=== PATIENT | female | born 1985 | race Caucasian/White ===

== ENCOUNTER 2018-04-15 19:51 | Emergency (ER) | payer OTHER ==
[~2018-04-15] VITALS: Ht 162.6 cm; Wt 152.0 kg
[~2018-04-15 19:51] MED LIST: AMOXICILLIN500 MG OR; AMOXICILLIN500 MG PO; CIPRO500 MG OR; LORTAB 5-325 MG1 TAB PO; LORTAB 7.5-3251 TAB PO; LORTAB5 OR; NO HOME MEDS; PRENATABS FA PO
[2018-04-15 23:25] VITALS: BP 155/92
== END 2018-04-15 23:25 | disposition home or self-care (01) ==
LOC: ED 19:51
DX: S93.491A Sprain of other ligament of right ankle, initial encounter (principal); X50.0XXA Overexertion from strenuous movement or load, initial encounter; Y92.89 Other specified places as the place of occurrence of the external cause; Y99.0 Civilian activity done for income or pay

== ENCOUNTER 2018-05-02 10:45 | Emergency (ER) | payer OTHER ==
[~2018-05-02] VITALS: Ht 162.6 cm; Wt 150.4 kg
[2018-05-02] MEDS ORDERED: AMOXICILLIN875 MG PO (11:39)
[2018-05-02 11:50] VITALS: BP 155/98
== END 2018-05-02 11:50 | disposition home or self-care (01) ==
LOC: ED 10:45
DX: J02.9 Acute pharyngitis, unspecified (principal); H61.21 Impacted cerumen, right ear; F17.210 Nicotine dependence, cigarettes, uncomplicated; R05 Cough; R09.89 Other specified symptoms and signs involving the circulatory and respiratory systems; R50.9 Fever, unspecified

== ENCOUNTER 2018-05-21 17:24 | Emergency (ER) | payer OTHER ==
[~2018-05-21] VITALS: Ht 162.6 cm; Wt 151.4 kg
[~2018-05-21 17:24] MED LIST changes: +AMOXICILLIN875 MG PO
[2018-05-21 20:19] LABS: HEMATOCRIT 42.9 % (37.0-47.0); IMMATURE GRANULOCYTES 0.3 % (0.0-5.0); MEAN CELL VOLUME 88.1 fL CALC (80.0-100.0); MEAN CORPUSCULAR HGB 28.7 pG CALC (26.0-32.0); MEAN CORPUSCULAR HGB CONC 32.6 g/L CALC (32.0-36.0); NEUT# 8.37 thou/uL (2.00-7.15); RED BLOOD COUNT 4.87 mill/uL (4.20-5.60); RED CELL DISTRI WIDTH 13.9 % (11.5-15.5)
[2018-05-21 20:21] LABS: URINE BILIRUBIN - DIPSTICK NEGATIVE (NEGATIVE); URINE BLOOD DIPSTICK TRACE-INTACT (NEGATIVE); URINE COLOR YELLOW; URINE GLUCOSE - DIPSTICK NEGATIVE (NEGATIVE); URINE KETONE NEGATIVE (NEGATIVE); URINE LEUK ESTERASE NEGATIVE (NEGATIVE); URINE NITRITE - DIPSTICK NEGATIVE (Negative); URINE PH 5.5 (4.5-8.0); URINE PROTEIN - DIPSTICK NEGATIVE (NEG-TRACE); URINE SPECIFIC GRAVITY >=1.030; URINE UROBILINOGEN - DIPSTICK 0.2 E.U./dL (0.2)
[2018-05-21 21:08] LABS: ALBUMIN 4.3 g/dL (3.2-5.0); ALKALINE PHOSPHATASE 114 u/l (38-126); ANION GAP 18 (6-22 (CALC)); BILIRUBIN, TOTAL 0.4 mg/dL (0.0-1.4); BUN 13 mg/dL (7-17); BUN/CREATININE RATIO 21 (12-20 (CALC)); CARBON DIOXIDE 25 mmol/l (22-30); CHLORIDE 100 mmol/l (95-108); CREATININE 0.6 mg/dL (0.5-1.0); GFR > 60 ML/MIN (>=60 (CALC)); GFR FOR AFR.AMER. > 60 ML/MIN (>=60 (CALC)); POTASSIUM 4.1 mmol/l (3.5-5.1); SGOT/AST 28 u/l (14-36); SODIUM 139 mmol/l (137-146); TOTAL PROTEIN 7.5 g/dL (6.3-8.2)
[2018-05-21] MEDS ORDERED: ANTIVERT PO (21:19)
[2018-05-21] MEDS ORDERED: LOSARTAN POT100 MG PO (21:19)
[2018-05-21 21:26] VITALS: BP 149/101
[2018-05-22] MEDS ORDERED: WELLBUTRIN SR100 MG PO (13:02)
== END 2018-05-21 21:34 | disposition home or self-care (01) ==
LOC: ED 17:24
PROVIDERS: Family Medicine
DX: H81.10 Benign paroxysmal vertigo, unspecified ear (principal); I10 Essential (primary) hypertension; F41.9 Anxiety disorder, unspecified; F32.9 Major depressive disorder, single episode, unspecified; R42 Dizziness and giddiness

== ENCOUNTER 2018-05-22 12:15 | Emergency (ER) | payer OTHER ==
[~2018-05-22] VITALS: Ht 162.6 cm; Wt 151.0 kg
[~2018-05-22 12:15] MED LIST changes: +ANTIVERT PO; +LOSARTAN POT100 MG PO
[2018-05-22] MEDS ORDERED: WELLBUTRIN SR100 MG PO (13:02)
[2018-05-22 13:27] LABS: HEMATOCRIT 45.5 % (37.0-47.0); HEMOGLOBIN 14.7 g/dl (12.0-16.0); IMMATURE GRANULOCYTES 0.2 % (0.0-5.0); MEAN CELL VOLUME 88.5 fL CALC (80.0-100.0); MEAN CORPUSCULAR HGB 28.6 pG CALC (26.0-32.0); MEAN CORPUSCULAR HGB CONC 32.3 g/L CALC (32.0-36.0); NEUT# 8.85 thou/uL (2.00-7.15); RED BLOOD COUNT 5.14 mill/uL (4.20-5.60); RED CELL DISTRI WIDTH 13.8 % (11.5-15.5)
[2018-05-22 13:39] LABS: ANION GAP 20 (6-22 (CALC)); BUN 14 mg/dL (7-17); BUN/CREATININE RATIO 21 (12-20 (CALC)); CARBON DIOXIDE 22 mmol/l (22-30); CHLORIDE 100 mmol/l (95-108); CREATININE 0.6 mg/dL (0.5-1.0); GFR > 60 ML/MIN (>=60 (CALC)); GFR FOR AFR.AMER. > 60 ML/MIN (>=60 (CALC)); POTASSIUM 3.7 mmol/l (3.5-5.1); SODIUM 139 mmol/l (137-146)
[2018-05-22 14:42] VITALS: BP 162/98
== END 2018-05-22 14:42 | disposition home or self-care (01) ==
LOC: ED 12:15
PROVIDERS: Family Medicine
DX: R00.2 Palpitations (principal); I10 Essential (primary) hypertension; F32.9 Major depressive disorder, single episode, unspecified; R11.0 Nausea; F41.9 Anxiety disorder, unspecified

== ENCOUNTER 2018-11-29 16:32 | Emergency (ER) | payer OTHER ==
[~2018-11-29] VITALS: Ht 162.6 cm; Wt 152.0 kg
[~2018-11-29 16:32] MED LIST changes: +WELLBUTRIN SR100 MG PO
[2018-11-29] MEDS ORDERED: FLOXIN OTIC0.3 % OT (16:53)
[2018-11-29] MEDS ORDERED: DOXYCYC MONO100 M2 PO (16:53)
[2018-11-29] MEDS ORDERED: BYDUREON2 MG SC (17:11)
[2018-11-29] MEDS ORDERED: METFORMIN HCL500 M1 PO (17:11)
[2018-11-29] MEDS ORDERED: BUPROPION HCL150 M2 PO (17:12)
[2018-11-29] MEDS ORDERED: PRAVASTATIN SOD20 MG PO (17:12)
[2018-11-29] MEDS ORDERED: LOSARTAN POTASS1 TA4 PO (17:12)
[2018-11-29] MEDS ORDERED: CELEXA20 MG PO (17:12)
[2018-11-29 17:14] VITALS: BP 132/66
== END 2018-11-29 17:29 | disposition home or self-care (01) ==
LOC: ED 16:32
DX: H60.92 Unspecified otitis externa, left ear (principal); S40.862A Insect bite (nonvenomous) of left upper arm, initial encounter; S40.861A Insect bite (nonvenomous) of right upper arm, initial encounter; S80.862A Insect bite (nonvenomous), left lower leg, initial encounter; S80.861A Insect bite (nonvenomous), right lower leg, initial encounter; L03.114 Cellulitis of left upper limb; L03.113 Cellulitis of right upper limb; L03.116 Cellulitis of left lower limb; L03.115 Cellulitis of right lower limb; I10 Essential (primary) hypertension; W57.XXXA Bitten or stung by nonvenomous insect and other nonvenomous arthropods, initial encounter